=== PATIENT | male | born 1980 | race Caucasian/White ===

== ENCOUNTER 2017-12-31 08:19 | Emergency (ER) | payer OTHER ==
[2017-12-31] MEDS ORDERED: Ondansetron INJ* 2 MG/ML VIAL IV ONE (08:47)
[2017-12-31] MEDS ORDERED: NS 0.9% 1000 ML* 1,000 ML IV ONE (08:47)
[2017-12-31] MEDS ORDERED: Ketorolac INJ* 30 MG/ML 1 ML VIAL IV PUSH ONE (09:18)
[2017-12-31 09:21] LABS: ABS Basophils 0 10^3/ul (0-0.2); ABS Eosinophils 0 10^3/ul (0-0.6); ABS Lymphocytes 1.4 10^3/ul (1.0-4.8); ABS Monocytes 0.6 10^3/ul (0-0.8); ABS Neutrophils 9.2 10^3/ul (1.5-7.7); ABS Nucleated RBC 0 10^3/ul; Eosinophil % 0.2 % (0-6); Hematocrit 43 % (42-52); Hemoglobin 14.6 g/dl (14.0-18.0); Lymphocyte % 12.2 % (25-47); Mean Corpuscular HGB Conc 34 g/dl (31-36); Mean Corpuscular Hemoglobin 29 pg (27-31); Mean Corpuscular Volume 85 fL (80-94); Mean Platelet Volume 8 um3 (7.4-10.4); Nucleated Red Blood Cells % 0; Platelet Count 193 10^3/ul (150-450); Red Cell Distribution Width 13 % (10.5-15); White Blood Count 11.2 10^3/ul (3.5-10.8)
--- NOTE | 2017-12-31 09:26 | ED ---
Abdominal Pain/Male - HPI Summary HPI Summary: 37 male presents to ED with complaints of lower abdominal pain that has been ongoing however the past couple of days (2-3) the pain has worsened. States he began vomiting today x2. Denies diarrhea. No blood in stool or vomit. States he was constipated however did have a normal bowel movement this morning. Does not relate the pain to anything. Nothing makes pain better or worse. Patient states it is always a dull ache however the pain does become sharp intermittently "comes in waves". Has been eating and drinking up until today. No urinary or genitalia complaints. States he was seen at , however had a seizure and was sent to [facility] 12/28/17and sent home, without abdominal pain work up. Seizure testing including labs and CT brain was normal, per patient . States he does have history however hasn't been diagnosed or is on medications for them. Did see a neurologist years ago and was cleared with unknown cause for seizures. Patient does not take any medications other than suboxone. Has not taken or tried any medication for this pain. No other complaints. No PMHx. Has not used drugs or alcohol for months. Has not had seizures since [facility] visit on . - History of Current Complaint Chief Complaint: EDAbdPain Stated Complaint: ABD PAIN Time Seen by Provider: 12/31/17 08:47 Hx Obtained From: Patient Onset/Duration: Sudden Onset, Lasting Days, Still Present, Other Timing: Intermittent Severity Initially: Moderate Severity Currently: Severe Pain Intensity: 10 Pain Scale Used: 0-10 Numeric Location: Diffuse, Discrete At: RLQ, Discrete At: LLQ, Umbilical Radiates: No Character: Sharp - at times, Dull Aggravating Factor(s): Nothing Alleviating Factor(s): Nothing Associated Signs And Symptoms: Positive: Constipation - resolved, Nausea, Vomiting. Negative: Fever - +chills, Blood in Stool, Urinary Symptoms, Decreased Appetite - Risk Factors Testicular Torsion: Negative Cardiac Risk Factors: Negative - Allergies/Home Medications Allergies/Adverse Reactions: Allergies Allergy/AdvReac Type Severity Reaction Status Date / Time phenytoin [From Dilantin] Allergy Rash And Verified 12/31/17 08:28 Itching PMH/Surg Hx/FS Hx/Imm Hx Endocrine/Hematology History: Denies: Hx Diabetes Cardiovascular History: Denies: Hx Hypertension Respiratory History: Denies: Hx Asthma - Surgical History Surgery Procedure, Year, and Place: none - Immunization History Immunizations Up to Date: Yes Infectious Disease History: No Infectious Disease History: Denies: Traveled Outside the [place] in Last 30 Days - Family History Known Family History: Positive: None - Social History Alcohol Use: None Substance Use Type: Reports: None Substance Use Comment - Amount & Last Used: suboxone Smoking Status (MU): Heavy Every Day Tobacco Smoker Review of Systems Positive: Chills - "feels feverish" Cardiovascular: Negative Respiratory: Negative Positive: Abdominal Pain, Vomiting, Nausea Musculoskeletal: Negative All Other Systems Reviewed And Are Negative: Yes Physical Exam Triage Information Reviewed: Yes Vital Signs On Initial Exam: Initial Vitals Temp Pulse Resp BP Pulse Ox 98.0 F 51 17 128/70 100 12/31/17 08:23 12/31/17 08:23 12/31/17 08:23 12/31/17 08:23 12/31/17 08:23 Vital Signs Reviewed: Yes Appearance: Positive: Well-Nourished, Ill-Appearing, Pain Distress - audible groaning Skin: Positive: Warm, Skin Color Reflects Adequate Perfusion, Dry. Negative: Cold, Numb, Soft, Cyanosis @, Jaundiced, Pale, Erythema @ Head/Face: Positive: Normal Head/Face Inspection Eyes: Positive: Conjunctiva Clear ENT: Positive: Pharynx normal Neck: Positive: Supple, Nontender Respiratory/Lung Sounds: Positive: Clear to Auscultation, Breath Sounds Present. Negative: Decreased Breath Sounds, Rales, Rhonchi, Wheezes Cardiovascular: Positive: Normal, RRR, Pulses are Symmetrical in both Upper and Lower Extremities. Negative: Murmur, Rub Abdomen Description: Positive: No Organomegaly, Guarding, McBurney's Point Tenderness, Other: - TTP periumbilical, diffuse abdomen with some RUQ and RLQ pain and LLQ. no hernias palpated or appreciated. Negative: Soft, Bruit, CVA Tenderness (R), CVA Tenderness (L), Distended Bowel Sounds: Positive: Present Male Genital Exam: Positive: normal genitalia - per patient, refused exam Musculoskeletal: Positive: Normal, Strength/ROM Intact Neurological: Positive: Normal, Sensory/Motor Intact, Alert, Oriented to Person Place, Time, Facial Symmetry, Speech Normal - Reshma Coma Scale Best Eye Response: 4 - Spontaneous Best Motor Response: 6 - Obeys Commands Best Verbal Response: 5 - Oriented Coma Scale Total: 15 Diagnostics - Vital Signs Vital Signs Temp Pulse Resp BP Pulse Ox 12/31/17 08:38 54 22 152/76 100 12/31/17 08:36 46 99 12/31/17 08:34 121/66 12/31/17 08:23 98.0 F 51 17 128/70 100 - Laboratory Result Diagrams: 12/31/17 09:09 12/31/17 09:09 Lab Statement: Any lab studies that have been ordered have been reviewed, and results considered in the medical decision making process. - CT abd/pelvis CT Interpretation: Positive (See Comments) - No definite bowel obstruction is noted. There is periportal edema noted in the liver. This may represent chronic liver disease or congestive heart failure and clinical correlation is suggested. No other masses or fluid collections are noted although a normal appendix is not visualized. Trace amount of free fluid is noted in the pelvis. CT Interpretation Completed By: Radiologist - EKG EKG Cardiac Rate: NL, Bradycardia EKG Rhythm: Sinus Bradycardia ST Segment: Normal Ectopy: None EKG Interpretation: sinus bradycardia EKG Comparison: Other - no EKG available for comparison Re-Evaluation - Re-Evaluation First Eval Re-Evaluation Time: 10:30 Change: Unchanged - toradol did not work, still in pain and requesting more pain medication. educated on use of narcotics with suboxone use. Second Eval Re-Evaluation Time: 13:26 Change: Improved - feeling much improved, pain relieved. updated on results and plan, agrees and understands. Abdominal Pain Fem Course/Dx - Course Course Of Treatment: labs and urinalysis obtained. attempted to obtain stool cultures. normal vitals, bradycardic on EKG, however was appearing to be vagal- ing and holding breath "due to pain". given toradol, fluids and zofran. did not have relief, given morphine and had relief. Ct abd/pelvis obtained, unremarkable other than chronic liver disease. did obtain records from [facility]. seen for seleta had labs and Ct that were unremarkable. patient was prescribed keppra for seizure disorder and to follow up with neurologist, has history of being non compliant. Obtained drug screen, for concern of abuse of opiates although is on suboxone and states he took that today. Negative. Increase fluids, rest, and bland high fiber diet. recommended probitoic. follow up GI about hepatitis, panel obtained and pending results. does have history of being told he may have hepatitis however has not been told which kind. follow up neuro for seizures. aware of worsening signs and symptoms to return for. no further complaints or concerns. genitalia and urinary tract normal. follow up with pcp also. - Diagnoses Differential Diagnosis/HQI/PQRI: Appendicitis, Bowel Obstruction, Constipation, Diverticulitis, Urinary Tract Infection, Other - gastroenteritis, hepatitis Provider Diagnoses: Abdominal pain, Gastroenteritis, Hepatitis Discharge - Discharge Plan Condition: Stable Disposition: HOME Prescriptions: Ibuprofen TAB* [Motrin TAB* 600 MG] 600 mg PO Q6H PRN #25 tab PRN Reason: Pain Patient Education Materials: Hepatitis A (ED), Hepatitis C (ED), Hepatitis B ( ED), Gastroenteritis (ED), Acute Abdominal Pain (ED) Referrals: [facility] [Outside] Eloy Bledsoe MD [Medical Doctor] - Nadia Rao MD [Medical Doctor] - Additional Instructions: Take prescribed ibuprofen only as needed for pain. Take with food. Increase fluid intake. Get plenty of rest. Eat high fiber diet. Recommend daily probiotic. Follow up with neurology, gi and get a pcp for further evaluation and treatment. Any new or worsening symptoms please seek medical attention promptly.
[2017-12-31] MEDS ORDERED: Iohexol 300* (CONTRAST) 10 ML SDV IV ONE (10:12)
[2017-12-31] MEDS ORDERED: Morphine INJ* 2 MG/ML 1 ML CARPUJECT IV ONE (11:11)
[2017-12-31 12:38] LABS: Urine Appearance Cloudy; Urine Blood Negative (Negative); Urine Color Yellow; Urine Ketones 1+ (Negative); Urine Protein Negative (Negative); Urine Specific Gravity 1.032 (1.010-1.030); Urine Urobilinogen Negative (Negative)
--- NOTE | 2017-12-31 12:40 | RAD ---
Indication: Periumbilical edema. Contrast: Administered 100.0 ml of OMNIPAQUE 300 mg/ml CT of the abdomen and pelvis was performed after oral and IV contrast administration. Coronal and sagittal reconstructed images were obtained. The lung bases demonstrate no pleural fluid, nodules or masses. Heart is of normal size without evidence of pericardial effusion. The liver is normal in size. There are no focal lesions or intrahepatic duct dilatation noted. There is low density surrounding the portal venous structures in this likely represents periportal edema. This can be seen in CHF or liver disease. The gallbladder demonstrates no calcified gallstones. No pericholecystic fluid or wall thickening is identified. The common duct is prominent in size measuring 9 mm although no definite calculi is noted in the distal common duct. The spleen is normal in size. The pancreas demonstrates no mass or pancreatic duct dilatation. No adrenal masses are noted. The kidneys demonstrate symmetric nephrograms without focal lesions. No retroperitoneal lymphadenopathy is noted. No dilated loops of bowel are noted. CT of the pelvis demonstrates no retroperitoneal or pelvic lymphadenopathy. The urinary bladder is distended. Aorta and inferior vena cava are unremarkable. The colon is filled with stool. Normal appendix is not definitively identified. No evidence of a tubular structure in the right lower quadrant noted to suggest appendicitis. The urinary bladder is unremarkable. Trace amount of free fluid is noted in the pelvis. Small bowel demonstrates no abnormal dilatation. The visualized bony structures are otherwise unremarkable. Disc spaces all well-preserved. Pelvic ring is intact. IMPRESSION: No definite bowel obstruction is noted. There is periportal edema noted in the liver. This may represent chronic liver disease or congestive heart failure and clinical correlation is suggested. No other masses or fluid collections are noted although a normal appendix is not visualized. Trace amount of free fluid is noted in the pelvis.
[2017-12-31 13:35] VITALS: BP 112/50
== END 2017-12-31 13:34 | disposition home or self-care (01) ==
LOC: ED 08:19
DX: R10.30 Lower abdominal pain, unspecified (principal); K52.9 Noninfective gastroenteritis and colitis, unspecified; K75.9 Inflammatory liver disease, unspecified; Z72.0 Tobacco use
CPT/HCPCS: 36415; 74177; 80053; 80307; 81003; 83605; 83690; 83880; 85025; 86140; 93005; 96360; 96374; 96375; 99284; J1885; J2270; J2405; Q9967

== ENCOUNTER 2018-01-15 09:08 | Emergency (ER) | payer OTHER ==
[2018-01-15] MEDS ORDERED: NS 0.9% 1000 ML* 1,000 ML IV ONE ×2 (09:35→11:31)
[2018-01-15] MEDS ORDERED: Ondansetron INJ* 2 MG/ML VIAL IV ONE (09:38)
[2018-01-15] MEDS ORDERED: diPHENhydraMINE IV* 50 MG/ML 1 ml VIAL (BENADRYL) IV ONE (09:39)
[2018-01-15] MEDS ORDERED: Famotidine IV * 20 MG in NS 0.9% 100 ML* 100 ML IVPB ONE (09:39)
[2018-01-15 10:01] LABS: ABS Basophils 0 10^3/ul (0-0.2); ABS Eosinophils 0 10^3/ul (0-0.6); ABS Lymphocytes 1.4 10^3/ul (1.0-4.8); ABS Monocytes 0.4 10^3/ul (0-0.8); ABS Nucleated RBC 0 10^3/ul; Eosinophil % 0.4 % (0-6); Hematocrit 44 % (42-52); Hemoglobin 15.3 g/dl (14.0-18.0); Lymphocyte % 11.5 % (25-47); Mean Corpuscular HGB Conc 35 g/dl (31-36); Mean Corpuscular Hemoglobin 29 pg (27-31); Mean Corpuscular Volume 84 fL (80-94); Mean Platelet Volume 8 um3 (7.4-10.4); Nucleated Red Blood Cells % 0.1; Platelet Count 231 10^3/ul (150-450); Red Blood Count 5.27 10^6/ul (4.0-5.4); Red Cell Distribution Width 13 % (10.5-15); White Blood Count 11.8 10^3/ul (3.5-10.8)
[2018-01-15 10:20] LABS: EGFR Non-African American 89.2 (>60)
[2018-01-15] MEDS ORDERED: Iohexol 300* (CONTRAST) 10 ML SDV IV ONE (11:43)
--- NOTE | 2018-01-15 12:56 | RAD ---
CLINICAL HISTORY: Abdominal pain COMPARISON: December 31, 2017 TECHNIQUE: Multiple contiguous axial CT scans were obtained of the abdomen and pelvis after the administration of intravenous contrast. Coronal and sagittal multiplanar reformations are submitted for review. Oral contrast was administered. Delayed images were obtained through the abdomen and pelvis. FINDINGS: LUNG BASES: The lung bases are clear. LIVER: There is stable mild periportal edema. BILE DUCTS: There is no intrahepatic or extrahepatic biliary dilatation. GALLBLADDER: The gallbladder is normal, without pericholecystic inflammatory change. PANCREAS: The pancreas is normal, without mass or ductal dilatation. SPLEEN: Normal in size and appearance. UPPER GI TRACT: Evaluation of the gastrointestinal tract is limited by incomplete gastric distention. The upper GI tract is unremarkable. SMALL BOWEL AND MESENTERY: The small bowel is normal in contour, course, and caliber. There is no obstruction or dilatation. COLON: The colon is normal in contour, course, caliber. There is no pericolonic inflammatory change. There is large amount of stool throughout the colon. The appendix is not clearly visualized. There is no appreciable inflammatory change within the right lower quadrant. ADRENALS: Normal bilaterally. KIDNEYS: There is a 0.4 cm calculus of the lower pole of left kidney. There is no appreciable hydronephrosis. BLADDER: The bladder is smooth in contour. PELVIC ORGANS: The prostate gland is normal. The seminal vesicles are symmetric. AORTA: The aorta is normal. IVC: Unremarkable LYMPH NODES: There is no lymphadenopathy by size criteria. ABDOMINAL WALL: There is no evidence for abdominal wall hernia. BONES AND SOFT TISSUES: Mild degenerative changes are noted most now set L5-S1 with left-sided neural foraminal narrowing. There is no osseous central canal stenosis. OTHER: Again noted is a trace amount of free fluid within the pelvis. IMPRESSION: 1. PERSISTENT PERIPORTAL EDEMA. 2. AGAIN NOTED IS A TRACE AMOUNT OF FREE FLUID WITHIN THE PELVIS. 3. LARGE AMOUNT OF STOOL THROUGHOUT THE COLON. 4. SMALL LEFT RENAL CALYCEAL STONE WITHOUT APPRECIABLE HYDRONEPHROSIS.
[2018-01-15 13:06] LABS: Urine Appearance Cloudy; Urine Blood Negative (Negative); Urine Color Yellow; Urine Ketones Negative (Negative); Urine Protein 1+(30 mg/dL) (Negative); Urine Specific Gravity 1.041 (1.010-1.030); Urine Urobilinogen Negative (Negative)
[2018-01-15 13:43] VITALS: BP 122/64
--- NOTE | 2018-01-17 08:16 | ED ---
Kurt Ray Angela, scribed for Jerad Solis MD on 01/15/18 at 0931 . Abdominal Pain/Male - HPI Summary HPI Summary: This pt is a 37 y/o male presenting to [facility] c/o abd pain since 04:00 this morning. Pt additionally reports nausea and vomiting. He denies chest pain, fever. Pt was seen in the ED on 12/31/17 for the same symptoms and had an abdomen/pelvis CT. He was referred to GI for hepatitis. Pt notes he followed up with gastronenterologist and was placed on antiacids and constipation medications. He has an upcoming appointment for a colonoscopy on February 17. Pt is a current every day marijuana user. - History of Current Complaint Chief Complaint: EDAbdPain Stated Complaint: ABD PAIN Time Seen by Provider: 01/15/18 09:25 Hx Obtained From: Patient Onset/Duration: Lasting Hours, Still Present Timing: Lasting Hours Severity Currently: Severe Pain Intensity: 10 Pain Scale Used: 0-10 Numeric Location: Diffuse Radiates: No Aggravating Factor(s): Nothing Alleviating Factor(s): Nothing Associated Signs And Symptoms: Positive: Nausea, Vomiting. Negative: Fever, Cough, Chest Pain - Allergies/Home Medications Allergies/Adverse Reactions: Allergies Allergy/AdvReac Type Severity Reaction Status Date / Time phenytoin [From Dilantin] Allergy Rash And Verified 12/31/17 08:28 Itching Home Medications: Home Medications Omeprazole CAP* [Prilosec CAP* 20 MG] 20 mg PO DAILY 01/15/18 [History Confirmed 01/15/18] Polyethylene Glycol 3350* [Miralax*] 17 gm PO DAILY 01/15/18 [History Confirmed 01/15/18] levETIRAcetam TAB* [Keppra TAB*] 500 mg PO QAM 01/15/18 [History Confirmed 01/15] PMH/Surg Hx/FS Hx/Imm Hx Endocrine/Hematology History: Denies: Hx Diabetes Cardiovascular History: Denies: Hx Hypertension Respiratory History: Denies: Hx Asthma - Surgical History Surgery Procedure, Year, and Place: none Infectious Disease History: No Infectious Disease History: Denies: Traveled Outside the [place] in Last 30 Days - Family History Known Family History: Positive: None - Social History Alcohol Use: None Substance Use Type: Reports: Marijuana Substance Use Comment - Amount & Last Used: suboxone Smoking Status (MU): Heavy Every Day Tobacco Smoker Review of Systems Negative: Fever, Chills Negative: Chest Pain Positive: Abdominal Pain, Vomiting, Nausea Skin: Negative Neurological: Negative All Other Systems Reviewed And Are Negative: Yes Physical Exam - Summary Physical Exam Summary: VITAL SIGNS: Reviewed. GENERAL: Patient is a well-developed and nourished male who is lying comfortable in the stretcher. Patient is not in any acute respiratory distress. HEAD AND FACE: Normocephalic and atraumatic. EYES: PERRLA, EOMI x 2, No injected conjunctiva. EARS: Hearing grossly intact. Ear canals and tympanic membranes are WNL. MOUTH: Oropharynx within normal limits. NECK: Supple, trachea is midline, no adenopathy, no JVD. CHEST: Symmetric, no tenderness at palpation LUNGS: Clear to auscultation bilaterally. No wheezing or crackles. CVS: RRR, S1 and S2 present, no murmurs or gallops appreciated. ABDOMEN: Soft. Epigastric tenderness. No signs of distention. Positive bowel sounds. No rebound no guarding, and no masses palpated. No abdominal bruit or pulsations. EXTREMITIES: FROM in all major joints, no edema, no cyanosis or clubbing. NEURO: Alert and oriented x 3. No acute neurological deficits. Speech is normal. SKIN: Dry and warm Triage Information Reviewed: Yes Vital Signs On Initial Exam: Initial Vitals Temp Pulse Resp BP Pulse Ox 97.9 F 36 18 142/69 100 01/15/18 09:14 01/15/18 09:14 01/15/18 09:14 01/15/18 09:14 01/15/18 09:14 Vital Signs Reviewed: Yes Diagnostics - Vital Signs Vital Signs Temp Pulse Resp BP Pulse Ox 01/15/18 09:14 97.9 F 36 18 142/69 100 - Laboratory Result Diagrams: 01/15/18 09:40 01/15/18 09:40 Lab Statement: Any lab studies that have been ordered have been reviewed, and results considered in the medical decision making process. - CT Abdomen/Pelvis CT CT Interpretation: Positive (See Comments) - IMPRESSION: 1. Persistent periportal edema. 2. Again noted is a trace amount of free fluid within the pelvis. 3. Large amount of stool throughout the colon. 4. Small left renal calyceal stone without appreciable hydronephrosis. Dr. Solis has reviewed this radiology report. CT Interpretation Completed By: Radiologist - EKG 09:39 Cardiac Rate: Bradycardia EKG Rhythm: Sinus Bradycardia - at 44 bpm EKG Interpretation: No ST elevation. Re-Evaluation - Re-Evaluation First Eval Re-Evaluation Time: 13:30 Change: Improved Comment: I reviewed the CT abdomen/pelvis resutls with the pt. Abdominal Pain Fem Course/Dx - Course Assessment/Plan: This pt is a 37 y/o male presenting to [facility] c/o abd pain since 04:00 this morning. Pt additionally reports nausea and vomiting. He denies chest pain, fever. Pt was seen in the ED on 12/31/17 for the same symptoms and had an abdomen/pelvis CT. He was referred to GI for hepatitis. Pt notes he followed up with gastronenterologist and was placed on antiacids and constipation medications. He has an upcoming appointment for a colonoscopy on February 17. Pt is a current every day marijuana user. Test results without any significant abnormalities except for WBC of 11.8, glucose of 129. Urinalysis is negative for UTI. Abdomen/Pelvis CT shows : 1. Persistent periportal edema. 2. Again noted is a trace amount of free fluid within the pelvis. 3. Large amount of stool throughout the colon. 4. Small left renal calyceal stone without appreciable hydronephrosis. In the ED course the pt was given IV fluids, Benadryl, Pepcid, and Zofran for the nausea and vomiting. After these medications the pts symptoms resolved. Pt is tolerating PO without any nausea or vomiting. Therefore pt will be discharged to home with follow up from his PCP. He is instructed to return to the ED for any worsening or new symptoms. He understands and agrees. Pt is hemodynamically stable, alert and oriented x3. - Diagnoses Provider Diagnoses: Nausea and vomiting Discharge - Discharge Plan Condition: Stable Disposition: HOME Patient Education Materials: Acute Nausea and Vomiting (ED) Referrals: [facility] [Outside] - 3 Days Additional Instructions: Please establish a primary care provider and follow up. RETURN TO THE ED FOR ANY WORSENING SYMPTOMS. The documentation as recorded by the Kurt morrell Angela accurately reflects the service I personally performed and the decisions made by , Jerad Solis MD.
== END 2018-01-15 13:43 | disposition home or self-care (01) ==
LOC: ED 09:08
DX: R11.2 Nausea with vomiting, unspecified (principal); F17.210 Nicotine dependence, cigarettes, uncomplicated
CPT/HCPCS: 36415; 74177; 80053; 81003; 81015; 82550; 83605; 83690; 83735; 85025; 86140; 87040; 87086; 93005; 96374; 96375; 99282; J1200; J2405; Q9967

== ENCOUNTER 2018-11-24 10:57 | Emergency (ER) | payer SELFPAY ==
[2018-11-24] MEDS ORDERED: Ibuprofen TAB* 600 MG PO ONE (11:51)
--- NOTE | 2018-11-24 11:56 | ED ---
HPI Chest Pain - HPI Summary HPI Summary: Pt is a 38 y/o M presenting to the ED with chest pain onset this morning. The pt reports a nonproductive cough, and pain on the R side that radiates down toward his abdomen. The pain is worse with movement and deep breaths. The pt denies a fever, rash, and any drug use and any medical problems, including asthma. The pt reports he is a smoker. - History of Current Complaint Chief Complaint: EDChestWallPain Time Seen by Provider: 11/24/18 11:41 Hx Obtained From: Patient Onset/Duration: Started Hours Ago, Still Present Timing: Constant Initial Severity: Moderate Current Severity: Moderate Pain Intensity: 8 Pain Scale Used: 0-10 Numeric Chest Pain Location: Right Lateral Chest Pain Radiates: Yes Chest Pain Radiates To:: Flank Character: Dull/Aching Aggravating Factor(s): Exertion, Movement, Deep Breaths Alleviating Factor(s): Rest Associated Signs and Symptoms: Positive: Chest Pain, Cough, Nonproductive Cough. Negative: Fever - Allergy/Home Medications Allergies/Adverse Reactions: Allergies Allergy/AdvReac Type Severity Reaction Status Date / Time phenytoin [From Dilantin] Allergy Rash And Verified 11/24/18 11:02 Itching Home Medications: Home Medications Buprenorphine TAB* [Subutex TAB*] 8 mg SL DAILY 11/24/18 [History Confirmed ] PMH/Surg Hx/FS Hx/Imm Hx Previously Healthy: Yes Endocrine/Hematology History: Denies: Hx Diabetes Cardiovascular History: Denies: Hx Hypertension Respiratory History: Denies: Hx Asthma - Surgical History Surgery Procedure, Year, and Place: none Infectious Disease History: No Infectious Disease History: Denies: Traveled Outside the [place] in Last 30 Days - Family History Known Family History: Negative: Hypertension, Diabetes - Social History Alcohol Use: None Substance Use Type: Reports: Marijuana Substance Use Comment - Amount & Last Used: suboxone Hx Tobacco Use: Yes Smoking Status (MU): Heavy Every Day Tobacco Smoker Review of Systems Negative: Fever Positive: Chest Pain Positive: Cough Negative: Rash All Other Systems Reviewed And Are Negative: Yes Physical Exam - Summary Physical Exam Summary: Appearance: Well appearing, no pain distress Skin: warm, dry, reflects adequate perfusion Head/face: normal Eyes: EOMI, ROSEANNA ENT: normal Neck: supple, non-tender Respiratory: CTA, breath sounds present and normal Cardiovascular: RRR, pulses symmetrical Abdomen: non-tender, soft Musculoskeletal: tenderness in R chest, strength/ROM intact Neuro: normal, sensory motor intact, A&Ox3 Triage Information Reviewed: Yes Vital Signs On Initial Exam: Initial Vitals Temp Pulse Resp BP Pulse Ox 98.7 F 73 16 139/74 98 11/24/18 10:59 11/24/18 10:59 11/24/18 10:59 11/24/18 10:59 11/24/18 10:59 Vital Signs Reviewed: Yes Diagnostics - Vital Signs Vital Signs Temp Pulse Resp BP Pulse Ox 11/24/18 11:18 63 22 130/65 100 11/24/18 11:17 64 24 11/24/18 10:59 98.7 F 73 16 139/74 98 - Laboratory Result Diagrams: 11/24/18 12:01 11/24/18 12:01 Lab Statement: Any lab studies that have been ordered have been reviewed, and results considered in the medical decision making process. - Radiology Chest xray Radiology Interpretation Completed By: Radiologist Summary of Radiographic Findings: PATCHY MULTIFOCAL CONSOLIDATION OF THE RIGHT LUNG. RECOMMEND FOLLOW-UP UNTIL RESOLUTION TOEXCLUDE UNDERLYING PULMONARY PARENCHYMAL PATHOLOGY. ED physician has reviewed this report. - EKG 1200 Cardiac Rate: NL - 60bpm EKG Rhythm: Sinus Rhythm ST Segment: Normal Ectopy: None Chest Pain Course/Dx - Course Course Of Treatment: The pt is a 38 y/o M presenting to the ED with chest pain onset this morning. The pt reports nonproductive cough, R sided chest pain that radiates down toward his abdomen, worse with movement and deep breaths. The pt denies fever, rash, drug use, or medical problems. The pt is a smoker. Bloodwork obtained. A chest x-ray shows patchy multifocal consolidation of the R lung, and EKG results were normal. The final dx includes pneumonia. The pt was instructed to follow up with his primary care provider within days, and the patient is agreeable with this plan. - Chest Pain Differential Diagnosis/HQI/PQRI: Chest Wall, Lower Respiratory Infection - Diagnoses Provider Diagnoses: Pneumonia Discharge - Sign-Out/Discharge Documenting (check all that apply): Patient Departure - Discharge Plan Condition: Stable Disposition: HOME Prescriptions: Azithromycin TAB* [Zithromax TAB (Z-CHANDNI) 250 mg #6 tabs] 250 mg PO DAILY #4 tab Ibuprofen TAB* [Motrin TAB* 600 MG] 600 mg PO Q8H PRN #20 tab MDD 3 PRN Reason: Pain Referrals: [facility] [Outside] Additional Instructions: PLEASE RETURN TO THE EMERGENCY DEPARTMENT WITH ANY NEW OR WORSENING SYMPTOMS. FOLLOW UP WITH YOUR PRIMARY CARE PROVIDER WITHIN THE NEXT 3 DAYS. - Billing Disposition and Condition Condition: STABLE Disposition: Home - Attestation Statements Document Initiated by Scribe: Yes Documenting Scribe: Belem Rice Provider For Whom Bin is Documenting (Include Credential): Shakir Caban MD. Scribe Attestation: Belem Ray, scribed for Sahkir Caban MD. on 11/24/18 at 1631. Scribe Documentation Reviewed: Yes Provider Attestation: The documentation as recorded by the juanisibBelem tyler accurately reflects the service I personally performed and the decisions made by Shakir sevilla MD. Status of Scribe Document: Viewed
[2018-11-24 12:07] LABS: ABS Basophils 0 10^3/ul (0-0.2); ABS Eosinophils 0.1 10^3/ul (0-0.6); ABS Lymphocytes 1.2 10^3/ul (1.0-4.8); ABS Monocytes 0.7 10^3/ul (0-0.8); ABS Neutrophils 6.9 10^3/ul (1.5-7.7); ABS Nucleated RBC 0 10^3/ul; Eosinophil % 0.7 %; Hematocrit 38 % (42-52); Hemoglobin 12.7 g/dl (14.0-18.0); Lymphocyte % 13.8 %; Mean Corpuscular HGB Conc 34 g/dl (31-36); Mean Corpuscular Hemoglobin 29 pg (27-31); Mean Corpuscular Volume 84 fL (80-94); Mean Platelet Volume 7.4 fL (7.4-10.4); Nucleated Red Blood Cells % 0; Platelet Count 213 10^3/ul (150-450); Red Blood Count 4.46 10^6/ul (4.00-5.40); Red Cell Distribution Width 13 % (10.5-15)
[2018-11-24 12:17] LABS: Activated Partial Thrombo Time 31.7 seconds (26.0-36.3); INR 1.04 (0.77-1.02)
[2018-11-24 12:25] LABS: Albumin 3.5 g/dL (3.2-5.2); BUN/Creatinine Ratio 16.7 (8-20); Calcium 9.1 mg/dL (8.6-10.3); EGFR Non-African American 102.3 (>60); Globulin 3.5 g/dL (2-4); Potassium 4.3 mmol/L (3.5-5.0); Total Bilirubin 0.4 mg/dL (0.2-1.0)
[2018-11-24] MEDS ORDERED: Azithromycin TAB* 250 MG PO ONE (12:50)
[2018-11-24 13:27] VITALS: BP 100/66
== END 2018-11-24 13:27 | disposition home or self-care (01) ==
LOC: ED 10:57
DX: J18.9 Pneumonia, unspecified organism (principal); Z72.0 Tobacco use
CPT/HCPCS: 36415; 71046; 80053; 84484; 85025; 85610; 85730; 93005; 99283; A9270-GY

== ENCOUNTER 2019-06-16 22:09 | Emergency (ER) | payer SELFPAY ==
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
[2019-06-17 01:18] VITALS: BP 105/57
== END 2019-06-17 01:17 | disposition home or self-care (01) ==
LOC: ED 22:09
DX: M54.5 Low back pain (principal); M51.37 Other intervertebral disc degeneration, lumbosacral region; V48.5XXA Car driver injured in noncollision transport accident in traffic accident, initial encounter; Y92.410 Unspecified street and highway as the place of occurrence of the external cause; Z88.8 Allergy status to other drugs, medicaments and biological substances; F17.200 Nicotine dependence, unspecified, uncomplicated
CPT/HCPCS: 72110; 99282